=== PATIENT | female | born 1965 | race Two or more races ===

== ENCOUNTER 2017-05-11 09:59 | Emergency (ER) | payer OTHER ==
[~2017-05-11] VITALS: Ht 154.9 cm; Wt 56.7 kg
[~2017-05-11 09:59] MED LIST: ANTIVERT25 M1 PO; BABY ASPIRIN81 MG; CIPRO500 MG PO; FLAVONOID; GILTUSS TR TAB1 EACH PO; LEVAQUIN250 MG/10 PO; PREVACID30 MG PO; TOPAMAX25 M1; URIN D.S. TABLE1 TAB PO; VOLTAREM 50 MG PO; ZANTAC300 MG PO; ZYRTEC10 MG PO
[2017-05-11] MEDS ORDERED: MUCINEX1200 MG PO (13:35)
[2017-05-11] MEDS ORDERED: OSEL75CA PO (13:37)
== END 2017-05-11 14:13 | disposition home or self-care (01) ==
LOC: ER 09:59
DX: B34.9 Viral infection, unspecified (principal)

== ENCOUNTER 2017-05-26 10:51 | Outpatient (CLI) | payer OTHER | END 2017-05-26 10:58 | disposition home or self-care (01) | LOC: LAB 10:51 | DX: E78.5 Hyperlipidemia, unspecified (principal); R42 Dizziness and giddiness; R82.79 Other abnormal findings on microbiological examination of urine ==

== ENCOUNTER → 2017-05-26 | Outpatient (CLI) | payer OTHER ==
[~2017-05-26] VITALS: Ht 152.4 cm; Wt 56.7 kg
[~2017-05-26] MED LIST changes: +MUCINEX1200 MG PO; +OSEL75CA PO
== END | disposition home or self-care (01) ==
LOC: PPHC 09:50
DX: R30.0 Dysuria (principal); Z01.89 Encounter for other specified special examinations

== ENCOUNTER → 2017-05-30 | Outpatient (CLI) | payer OTHER ==
[~2017-05-30] VITALS: Ht 152.4 cm; Wt 56.7 kg
== END | disposition home or self-care (01) ==
LOC: PPHC 09:52
DX: N20.0 Calculus of kidney (principal); N39.0 Urinary tract infection, site not specified; Z00.8 Encounter for other general examination

== ENCOUNTER 2017-06-06 16:20 | Outpatient (CLI) | payer OTHER | END 2017-06-06 16:21 | disposition home or self-care (01) | LOC: LAB 16:20 | DX: N30.01 Acute cystitis with hematuria (principal) ==

== ENCOUNTER 2017-06-08 08:05 | Outpatient (CLI) | payer OTHER | END 2017-06-08 08:07 | disposition home or self-care (01) | LOC: SONOGRAMA 08:05 → MAMO-SONO 08:15 | DX: N30.01 Acute cystitis with hematuria (principal) ==

== ENCOUNTER 2017-06-15 09:56 | Outpatient (CLI) | payer OTHER ==
[~2017-06-15] VITALS: Ht 152.4 cm; Wt 58.1 kg
== END 2017-06-15 10:15 | disposition home or self-care (01) ==
LOC: OFIC 805 09:56
DX: J37.0 Chronic laryngitis (principal); H93.13 Tinnitus, bilateral; R13.19 Other dysphagia

== ENCOUNTER 2017-07-15 09:24 | Outpatient (CLI) | payer OTHER | END 2017-07-15 09:32 | disposition home or self-care (01) | LOC: LAB 09:24 | DX: N30.01 Acute cystitis with hematuria (principal) ==

== ENCOUNTER → 2017-09-07 09:52 | Outpatient (CLI) | payer OTHER ==
[~2017-09-07 09:52] MED LIST changes: +CALCIUM500 M2; +CIPRO250 MG; +KETO10TA2 PO; +PREVACID30 M1 PO
== END | disposition home or self-care (01) ==
LOC: LAB 09:52
DX: N39.0 Urinary tract infection, site not specified (principal); R82.79 Other abnormal findings on microbiological examination of urine

== ENCOUNTER 2017-09-08 04:25 | Emergency (ER) | payer OTHER ==
[~2017-09-08] VITALS: Ht 154.9 cm; Wt 57.6 kg
[~2017-09-08 04:25] MED LIST changes: -CALCIUM500 M2; -CIPRO250 MG; -KETO10TA2 PO; -PREVACID30 M1 PO
[2017-09-08] MEDS ORDERED: CALCIUM500 M2 (04:33)
[2017-09-08] MEDS ORDERED: CIPRO250 MG (04:36)
[2017-09-08] MEDS ORDERED: KETO10TA2 PO (08:12)
[2017-09-08] MEDS ORDERED: PREVACID30 M1 PO (08:12)
== END 2017-09-08 08:42 | disposition home or self-care (01) ==
LOC: ER 04:25
DX: N39.0 Urinary tract infection, site not specified (principal)

== ENCOUNTER 2017-09-10 09:06 | Inpatient (IN) | payer OTHER ==
[~2017-09-10] VITALS: Ht 154.9 cm; Wt 57.6 kg
[~2017-09-10 09:06] MED LIST changes: +CALCIUM500 M2; +CIPRO250 MG; +KETO10TA2 PO; +PREVACID30 M1 PO
== END 2017-09-16 12:57 | disposition home or self-care (01) | DRG 690 ==
LOC: ER 09:06 → MEDJ 17:39
PROC: 8E0ZXY6 Isolation (ICD-10-PCS; 2017-09-10)
PROC: BT43ZZZ Ultrasonography of Bilateral Kidneys (ICD-10-PCS; principal; 2017-09-12)
DX: N39.0 Urinary tract infection, site not specified (principal); K21.9 Gastro-esophageal reflux disease without esophagitis; B96.29 Other Escherichia coli [E. coli] as the cause of diseases classified elsewhere; B96.1 Klebsiella pneumoniae [K. pneumoniae] as the cause of diseases classified elsewhere; Z16.12 Extended spectrum beta lactamase (ESBL) resistance

== ENCOUNTER → 2017-10-02 | Emergency (ER) | payer OTHER ==
[~2017-10-02] VITALS: Ht 154.9 cm; Wt 57.2 kg
== END | disposition home or self-care (01) ==
LOC: ER 08:19
DX: R42 Dizziness and giddiness (principal)

== ENCOUNTER 2017-12-22 10:55 | Outpatient (CLI) | payer OTHER | END 2017-12-22 11:04 | disposition home or self-care (01) | LOC: MAMO-SONO 10:55 | DX: Z12.31 Encounter for screening mammogram for malignant neoplasm of breast (principal) ==

== ENCOUNTER 2017-12-22 11:31 | Outpatient (CLI) | payer OTHER | END 2017-12-22 11:36 | disposition home or self-care (01) | LOC: LAB 11:31 | DX: D50.8 Other iron deficiency anemias (principal); E83.51 Hypocalcemia; E78.00 Pure hypercholesterolemia, unspecified; E03.8 Other specified hypothyroidism; N39.0 Urinary tract infection, site not specified ==

== ENCOUNTER 2018-02-27 11:22 | Outpatient (CLI) | payer OTHER | END 2018-02-27 18:34 | disposition home or self-care (01) | LOC: LAB 11:22 | DX: N39.0 Urinary tract infection, site not specified (principal) ==

== ENCOUNTER 2018-03-01 12:36 | Outpatient (CLI) | payer OTHER | END 2018-03-01 12:39 | disposition home or self-care (01) | LOC: SONOGRAMA 12:36 | DX: N20.0 Calculus of kidney (principal); R10.2 Pelvic and perineal pain ==

== ENCOUNTER → 2018-07-10 10:34 | Outpatient (CLI) | payer OTHER | END | disposition home or self-care (01) | LOC: LAB 10:34 | DX: J20.0 Acute bronchitis due to Mycoplasma pneumoniae (principal); J11.1 Influenza due to unidentified influenza virus with other respiratory manifestations; J20.8 Acute bronchitis due to other specified organisms ==

== ENCOUNTER 2018-08-01 10:10 | Outpatient (CLI) | payer OTHER | END 2018-08-01 16:32 | disposition home or self-care (01) | LOC: LAB 10:10 | DX: D64.89 Other specified anemias (principal); E78.2 Mixed hyperlipidemia; E55.9 Vitamin D deficiency, unspecified; N93.0 Postcoital and contact bleeding; E03.8 Other specified hypothyroidism ==

== ENCOUNTER → 2018-08-16 | Outpatient (CLI) | payer OTHER | END | disposition home or self-care (01) | LOC: SONOGRAMA 08:28 → MAMO-SONO 09:15 | DX: M79.642 Pain in left hand (principal) ==

== ENCOUNTER 2018-08-21 11:23 | Outpatient (CLI) | payer OTHER | END 2018-08-21 13:28 | disposition home or self-care (01) | LOC: LAB 11:23 | DX: N39.0 Urinary tract infection, site not specified (principal); B96.89 Other specified bacterial agents as the cause of diseases classified elsewhere; M65.849 Other synovitis and tenosynovitis, unspecified hand ==

== ENCOUNTER 2018-10-03 09:09 | Outpatient (CLI) | payer OTHER | END 2018-10-03 09:16 | disposition home or self-care (01) | LOC: SONOGRAMA 09:09 → MAMO-SONO 10:45 | DX: R35.0 Frequency of micturition (principal); R31.9 Hematuria, unspecified ==

== ENCOUNTER 2018-11-13 09:26 | Outpatient (CLI) | payer OTHER | END 2018-11-13 09:29 | disposition home or self-care (01) | LOC: LAB 09:26 | DX: N39.0 Urinary tract infection, site not specified (principal) ==

== ENCOUNTER 2019-01-02 08:45 | Outpatient (CLI) | payer OTHER | END 2019-01-02 08:48 | disposition home or self-care (01) | LOC: NUCLEAR 08:45 | DX: M81.0 Age-related osteoporosis without current pathological fracture (principal); M85.88 Other specified disorders of bone density and structure, other site ==

== ENCOUNTER 2019-01-02 09:20 | Outpatient (CLI) | payer OTHER | END 2019-01-02 13:00 | disposition home or self-care (01) | LOC: MAMO-SONO 09:20 | DX: Z12.31 Encounter for screening mammogram for malignant neoplasm of breast (principal); Z87.898 Personal history of other specified conditions; N63.10 Unspecified lump in the right breast, unspecified quadrant; N63.20 Unspecified lump in the left breast, unspecified quadrant ==

== ENCOUNTER 2019-01-09 12:27 | Outpatient (CLI) | payer OTHER | END 2019-01-09 15:27 | disposition home or self-care (01) | LOC: LAB 12:27 | DX: N39.0 Urinary tract infection, site not specified (principal) ==

== ENCOUNTER 2019-01-30 09:21 | Outpatient (CLI) | payer OTHER | END 2019-01-30 15:00 | disposition home or self-care (01) | LOC: LAB 09:21 | DX: E03.8 Other specified hypothyroidism (principal); M81.0 Age-related osteoporosis without current pathological fracture; E11.9 Type 2 diabetes mellitus without complications; E78.01 Familial hypercholesterolemia; M70.61 Trochanteric bursitis, right hip; M70.62 Trochanteric bursitis, left hip ==

== ENCOUNTER → 2019-03-08 09:27 | Outpatient (CLI) | payer OTHER | END | disposition home or self-care (01) | LOC: LAB 09:27 | DX: E78.49 Other hyperlipidemia (principal); N39.0 Urinary tract infection, site not specified; R42 Dizziness and giddiness; E55.9 Vitamin D deficiency, unspecified; Z00.00 Encounter for general adult medical examination without abnormal findings ==

== ENCOUNTER 2019-06-19 10:14 | Outpatient (CLI) | payer OTHER | END 2019-06-19 10:23 | disposition home or self-care (01) | LOC: LAB 10:14 | DX: R00.2 Palpitations (principal); Z00.00 Encounter for general adult medical examination without abnormal findings; E78.49 Other hyperlipidemia; E55.9 Vitamin D deficiency, unspecified; R42 Dizziness and giddiness; R51 Headache; J11.1 Influenza due to unidentified influenza virus with other respiratory manifestations ==

== ENCOUNTER 2019-11-05 07:57 | Outpatient (CLI) | payer OTHER | END 2019-11-05 14:03 | disposition home or self-care (01) | LOC: MAMO-SONO 07:57 | PROVIDERS: ATTEND Specialist | DX: Z12.31 Encounter for screening mammogram for malignant neoplasm of breast (principal); N63.10 Unspecified lump in the right breast, unspecified quadrant; N63.20 Unspecified lump in the left breast, unspecified quadrant ==

== ENCOUNTER 2020-12-08 07:14 | Outpatient (CLI) | payer OTHER | END 2020-12-08 07:30 | disposition home or self-care (01) | LOC: MAMO-SONO 07:14 | PROVIDERS: ATTEND Specialist | DX: N64.59 Other signs and symptoms in breast (principal); Z12.31 Encounter for screening mammogram for malignant neoplasm of breast ==

== ENCOUNTER 2021-01-05 12:39 | Outpatient (CLI) | payer OTHER | END 2021-01-05 12:49 | disposition home or self-care (01) | LOC: NUCLEAR 12:39 | PROVIDERS: ATTEND Specialist | DX: M85.80 Other specified disorders of bone density and structure, unspecified site (principal); M81.0 Age-related osteoporosis without current pathological fracture ==

== ENCOUNTER 2021-07-27 09:01 | Outpatient (CLI) | payer OTHER | END 2021-07-27 09:18 | disposition home or self-care (01) | LOC: RAD 09:01 | PROVIDERS: ATTEND Internal Medicine Cardiovascular Disease | DX: M40.40 Postural lordosis, site unspecified (principal); M19.90 Unspecified osteoarthritis, unspecified site; M12.9 Arthropathy, unspecified ==

== ENCOUNTER 2021-12-14 08:23 | Outpatient (CLI) | payer OTHER | END 2021-12-14 08:37 | disposition home or self-care (01) | LOC: MAMO-SONO 08:23 | PROVIDERS: ATTEND Specialist | DX: Z12.31 Encounter for screening mammogram for malignant neoplasm of breast (principal); N63.0 Unspecified lump in unspecified breast ==

== ENCOUNTER 2022-12-17 07:59 | Outpatient (CLI) | payer OTHER | END 2022-12-17 08:17 | disposition home or self-care (01) | LOC: MAMO-SONO 07:59 | PROVIDERS: ATTEND Internal Medicine Cardiovascular Disease | DX: N63.11 Unspecified lump in the right breast, upper outer quadrant (principal); Z12.31 Encounter for screening mammogram for malignant neoplasm of breast ==

== ENCOUNTER 2023-12-19 07:31 | Outpatient (CLI) | payer OTHER | END 2023-12-19 07:36 | disposition home or self-care (01) | LOC: MAMO-SONO 07:31 | PROVIDERS: ATTEND Internal Medicine Cardiovascular Disease | DX: M12.9 Arthropathy, unspecified (principal); N60.11 Diffuse cystic mastopathy of right breast; N60.12 Diffuse cystic mastopathy of left breast; Z12.31 Encounter for screening mammogram for malignant neoplasm of breast ==

== ENCOUNTER → 2024-05-08 08:22 | Outpatient (CLI) | payer OTHER | END | disposition home or self-care (01) | LOC: NUCLEAR 08:22 | PROVIDERS: ATTEND Internal Medicine Cardiovascular Disease | DX: M81.0 Age-related osteoporosis without current pathological fracture (principal); E55.9 Vitamin D deficiency, unspecified ==

== ENCOUNTER 2024-12-26 07:04 | Outpatient (CLI) | payer OTHER | END 2024-12-26 07:17 | disposition home or self-care (01) | LOC: MAMO-SONO 07:04 | PROVIDERS: ATTEND Specialist | DX: Z12.31 Encounter for screening mammogram for malignant neoplasm of breast (principal) ==